=== PATIENT | female | born 1955 | race Caucasian/White ===

== ENCOUNTER 2019-11-28 06:52 | Emergency (ER) | payer OTHER ==
[~2019-11-28] VITALS: Ht 165.1 cm; Wt 107.0 kg
[2019-11-28 07:06] VITALS: BP 138/86; Ht 165.1 cm; Wt 107.0 kg
== END 2019-11-28 09:26 | disposition home or self-care (01) ==
LOC: ED 06:52
DX: M19.011 Primary osteoarthritis, right shoulder (principal); M75.31 Calcific tendinitis of right shoulder; E03.9 Hypothyroidism, unspecified; Z88.3 Allergy status to other anti-infective agents; Z90.710 Acquired absence of both cervix and uterus; Z90.49 Acquired absence of other specified parts of digestive tract; Z88.8 Allergy status to other drugs, medicaments and biological substances
CPT/HCPCS: 90715; J2001; J3301